=== PATIENT | male | born 1980 | race Caucasian/White ===

== ENCOUNTER 2017-11-11 21:53 | Emergency (ER) | payer OTHER ==
[~2017-11-11] VITALS: Ht 167.6 cm; Wt 113.4 kg
[2017-11-11] MEDS ORDERED: HYDR-971 PO (23:24)
[2017-11-11] MEDS ORDERED: INDO50CA PO (23:24)
--- NOTE | 2017-11-11 23:27 | PHYS DOC ---
General Chief Complaint: FOOT INJURY PAIN Stated Complaint: RIGHT FOOT PAIN Time Seen by MD: 22:33 Source: patient Exam Limitations: no limitations Problems: History of Present Illness Initial Comments Patient is a 37-year-old male complaining of right hallux pain. Patient states that overnight he slowly developed gradually increasing pain and redness and tenderness at his right great toe. Throughout the night his bed linens more painfully irritating the digit, he denies any trauma fever chills or myalgias. He's been able to walk with discomfort and has had no pre-arrival treatment. He is normally healthy takes no daily medications Onset: yesterday Severity: severe Pain/Injury Location: right 1st toe Method of Injury: unknown Modifying Factors: worse with jarring, worse with movement, improves with rest Allergies: Coded Allergies: No Known Drug Allergies (Unverified , 11/11/17) Past Medical History Medical History: no pertinent history Surgical History: noncontributory Social History Smoker: non-smoker Alcohol: none Drugs: none Review of Systems Constitutional: denies chills, denies fever Respiratory: denies cough, denies shortness of breath Cardiovascular: denies chest pain, denies palpitations Gastrointestinal: denies nausea, denies vomiting Musculoskeletal: see HPI Skin: see HPI Psychiatric/Neurological: see HPI Physical Exam General Appearance: no apparent distress, obese Neck: non-tender, supple Cardiovascular/Respiratory: normal peripheral pulses, no respiratory distress Back: no CVA tenderness, no vertebral tenderness Ankles: bilateral ankle non-tender, bilateral ankle normal inspection, bilateral ankle normal range of motion, bilateral ankle no evidence of injury Feet: right foot other (first MTP joint is exquisitely tender, mildly swollen and erythematous consistent with gout no palpable deformity or bony tenderness) Neurologic/Tendon: normal sensation, normal motor functions, normal tendon functions, responds to pain, no evidence tendon injury Psychiatric: alert, oriented x 3 Skin: warm/dry Orders, Labs, Meds Right foot: No acute osseous abnormality, interpreted by me I discussed prescription and [id number] medications as well as activity restriction. I discussed labs to be checked after symptoms resolved patient expressed agreement and understanding with treatment plan. Departure Time of Disposition: 23:25 Disposition: 01 HOME, SELF-CARE Diagnosis: gout right great toe Condition: GOOD Patient Instructions: Gout, [id number]-hr-Ycch Additional Instructions: Please review the patient education materials given by ED staff. Off work tomorrow, note given. Wear the postop shoe as needed. Prescription: Indomethacin, [place] 5 mg quantity 30 Take medications with food to avoid nausea and vomiting. Increase fluid intake and take [id number] stool softeners to avoid opiate associated constipation. Follow-up with your doctor follow-up with your doctor in 5-7 days for recheck. Return to ED with new or changing symptoms. BRAYAN WIGGINS DO Nov 11, 2017 23:27
[2017-11-12] MEDS ORDERED: ONDANSETRON ODT 4 MG TAB.RAPDIS PO ONE
[2017-11-12] MEDS ORDERED: HYDROcodone/APAP 10/325 1 TAB TABLET PO ONE
[2017-11-12] MEDS ORDERED: INDOMETHACIN 25 MG CAPSULE PO ONE
[2017-11-12 00:29] VITALS: BP 144/99
--- NOTE | 2017-11-12 07:56 | RAD ---
Right foot, 3 views, 11/11/2017: History: Foot pain No fracture or destructive bony lesion is seen. There is moderate generalized soft tissue swelling. IMPRESSION: No acute bony abnormality is detected.
== END 2017-11-12 00:29 | disposition home or self-care (01) ==
LOC: ER 21:53
DX: M10.9 Gout, unspecified (principal); M79.671 Pain in right foot
CPT/HCPCS: 73630; 99284; Q0162